=== PATIENT | female | born 1950 | race Caucasian/White ===

== ENCOUNTER → 2017-04-03 | Outpatient (CLI) | payer MEDICARE, BC ==
--- NOTE | ~2017-04-03 | MY29 ---
[facility] A Service of [facility] RADIOLOGY TEXT RESULTS PATIENT: ALLI BATISTA LOCATION: [facility] : 52 UNIT #: [id number] AGE: [address]: Tyler Rose MD SEX: F ORDER DR: [id number] [facility] [address] [place], [place] [address] [id number] O MR#: [id number] Acc #: [id number] NAME: ALLI BATISTA : 1950 SEX: F STUDY DATE/TIME: 04/03/2017 10:34 UNIT: [facility] ROOM: STUDY DESCRIPTION: MY [facility] SCREENING W/ CAD BILAT Attending Physician: Tyler Rose M.D. Referring Physician: Tyler Rose M.D. Ordering Physician: Tyler Rose M.D. Primary Care Physician: Tyler Rose M.D. MEDICAL IMAGING REPORT This report is preliminary unless electronic signature is present EXAM Bilateral digital screening mammogram with CAD, 04/03/2017. HISTORY Family history of breast cancer (relative not designated on the history sheet). No personal history of breast cancer. No current complaints. COMPARISON Bilateral screening mammogram 03/31/2016, 02/07/2015. FINDINGS CC and MLO views were obtained of each breast utilizing digital technique and reviewed with an FDA-approved CAD device. Heterogeneously dense fibroglandular tissue is present bilaterally. No new or suspicious nodule, architectural distortion or cluster of microcalcifications is seen. No abnormal skin thickening or nipple retraction is identified. IMPRESSION Benign findings. Routine bilateral screening mammogram is recommended in 1 year. Patients over the age of 40 are entered into a reminder system with target due date for the next mammogram. A result letter will also be sent to the patient. BIRADS: 2 Benign finding. Dictated by... Kristan Velazquez M.D. [facility] A Service [facility] RADIOLOGY TEXT RESULTS PATIENT: ALLI BATISTA LOCATION: [facility] : 52 UNIT #: [id number] AGE: [address]: Tyler Rose MD SEX: F ORDER DR: THIS IS AN ELECTRONICALLY VERIFIED REPORT Kristan Velazquez M.D. at 04/09/2017 8:37 AM Barbara TD: 04/03/2017 16:38 JOB #: [id number] MEDICAL IMAGING REPORT Page 1 of 1 COPY
== END | disposition home or self-care (01) ==
LOC: CWCC 10:03
DX: Z12.31 Encounter for screening mammogram for malignant neoplasm of breast (principal); Z80.3 Family history of malignant neoplasm of breast
CPT/HCPCS: G0202